=== PATIENT | male | born 1980 | race Caucasian/White ===

== ENCOUNTER 2022-04-20 00:43 | Emergency (ER) | payer BC ==
[~2022-04-20] VITALS: Ht 182.9 cm; Wt 122.7 kg
[2022-04-20 00:58] VITALS: BP_DIAS 101
[2022-04-20] MEDS ORDERED: amLODIPine 5mg tablet PO ONE (02:40)
[2022-04-20] MEDS ORDERED: azithromycin 250mg tablet PO ONE (02:40)
[2022-04-20] MEDS ORDERED: diphenhydrAMINE 25mg capsule PO ONE (02:40)
[2022-04-20] MEDS ORDERED: AZIT-83 PO (02:44)
[2022-04-20] MEDS ORDERED: AMLO2.5T2 PO (02:44)
[2022-04-20 02:47] VITALS: BP_SYST 172
== END 2022-04-20 03:00 | disposition home or self-care (01) ==
LOC: ER 00:44
DX: H66.91 Otitis media, unspecified, right ear (principal); I10 Essential (primary) hypertension; F12.90 Cannabis use, unspecified, uncomplicated
CPT/HCPCS: 99284; Q0163